=== PATIENT | female | born 1975 | race Caucasian/White ===

== ENCOUNTER 2018-07-14 01:41 | Emergency (ER) | payer MEDICAID ==
[~2018-07-14] VITALS: Ht 160 cm; Wt 81.6 kg
[2018-07-14 02:10] VITALS: BP_SYST 128
--- NOTE | 2018-07-14 02:15 | NUR ---
Patient triaged and placed in waiting room. VSS and patient appears in no acute distress at this time. Accompanied by , awaiting available bed, and MD notified of need for MSE.
--- NOTE | 2018-07-14 03:54 | NUR ---
Pt placed to ER bed 01, to gown. Pt c/o bumps generalized to body that she noticed since yesterday. Red and raised pimple sized bumps noted to left face, BUE, and BLE. Pt denies recent changes in detergents or perfumes or denies exposure to food allergens. Airway patent, respirations even and non-labored.
--- NOTE | 2018-07-14 04:58 | NUR ---
Pt left without being seen by ER
== END 2018-07-14 04:58 | disposition left against medical advice (07) ==
LOC: SED 01:41
DX: R21 Rash and other nonspecific skin eruption (principal); Z53.21 Procedure and treatment not carried out due to patient leaving prior to being seen by health care provider

== ENCOUNTER 2020-03-26 13:50 | Emergency (ER) | payer MEDICAID ==
[~2020-03-26] VITALS: Ht 160 cm; Wt 78.9 kg
[2020-03-26 13:50] VITALS: BP_SYST 129
[2020-03-26] MEDS ORDERED: KETOROLAC TROMETHAMINE 60 MG/2 ML VIAL IM ONE (15:30)
[2020-03-26 16:10] VITALS: BP_SYST 116
== END 2020-03-26 16:10 | disposition home or self-care (01) ==
LOC: SED 13:50
DX: M25.512 Pain in left shoulder (principal); Z90.49 Acquired absence of other specified parts of digestive tract
CPT/HCPCS: 73030; 96372; 99283; J1885